=== PATIENT | female | born 2000 | race American Indian/Alaskan Native ===

== ENCOUNTER 2020-11-12 20:40 | Inpatient (IN) | payer OTHER ==
[2020-11-12] MEDS ORDERED: BUTORPHANOL 2 MG/1 ML INJ IV PRN (22:48)
[2020-11-12] MEDS ORDERED: ePHEDrine SULFATE 50 MG/1 ML INJ IV PRN (22:48)
[2020-11-12] MEDS ORDERED: TERBUTALINE 1 MG/1 ML INJ SUB-Q PRN (22:48)
[2020-11-12] MEDS ORDERED: LIDOCAINE (2%) 20 MG/1 ML VIAL 20 ML MDV INFILTRATI ONE (22:48)
[2020-11-12] MEDS ORDERED: MINERAL OIL 30 ML ORAL LIQD PO PRN (22:48)
[2020-11-12] MEDS ORDERED: OXYTOCIN DRIP 30 UNITS/500 ML BAG IV SCH ×2 (23:00)
[2020-11-12] MEDS: LACTATED RINGERS 1,000 ML IV SCH (23:18)
[2020-11-13 00:29] LABS: Hematocrit 36.3 % (30.3-42.9); Hemoglobin 12.3 gm/dl (10.1-14.3); Mean Corpuscular HGB Conc 34 % (30-34); Mean Corpuscular Volume 85 fl (79-97); Platelet Count 167 K/mm3 (140-440); Red Blood Count 4.28 M/mm3 (3.65-5.03); Red Cell Distribution Width 15.5 % (13.2-15.2)
[2020-11-13] MEDS: LACTATED RINGERS 1,000 ML IV SCH ×2 (07:08→14:49)
--- NOTE | 2020-11-13 08:50 | History and Physical Report ---
History of Present Illness Date of examination: 11/13/20 Date of admission: 11/12/20 20:40 Chief complaint: IOL History of present illness: 20y/o @ 39+4 weeks admitted for IOL secondary to LGA and obesity. Patient has received care @ [facility]. course is complicated by LGA with last EFW of 4065gm. Patient is GBS negative Past History Past Medical History: no pertinent history Past Surgical History: no surgical history Social history: single - Obstetrical History Expected Date of Delivery: 11/16/20 Actual Gestation: 39 Week(s) 4 Day(s) : 3 Para: 0 Hx # Term Pregnancies: 0 Number of Pregnancies: 0 Spontaneous Abortions: 2 Induced : 0 Number of Living Children: 0 Medications and Allergies Allergies Allergy/AdvReac Type Severity Reaction Status Date / Time No Known Allergies Allergy Verified 11/12/20 22:54 Active Meds: Active Medications Butorphanol Tartrate (Butorphanol 2 Mg/1 Ml Inj) 2 mg IV Q2H PRN PRN Reason: Pain , Severe (7-10) Ephedrine Sulfate (Ephedrine Sulfate 50 Mg/1 Ml Inj) 10 mg IV Q2M PRN PRN Reason: Hypotension Oxytocin/Sodium Chloride (Pitocin/Ns 30 Unit/500ml) 30 units in 500 mls @ 2 mls/hr IV TITR MOOKIE; Protocol Last Titration: 11/13/20 08:27 Dose: 4 mls/hr, 4 mls/hr Documented by: Lactated Ringer's (Lactated Ringers) 1,000 mls @ 125 mls/hr IV DIRECT MOOKIE Last Admin: 11/13/20 07:08 Dose: 125 mls/hr Documented by: Oxytocin/Sodium Chloride (Pitocin/Ns 30 Unit/500ml) 30 units in 500 mls @ 40 mls/hr IV TITR MOOKIE; Protocol Mineral Oil (Mineral Oil 30 Ml Oral Liqd) 30 ml PO QHS PRN PRN Reason: Constipation Terbutaline Sulfate (Terbutaline 1 Mg/1 Ml Inj) 0.25 mg SUB-Q ONCE PRN PRN Reason: Hyperstimulation/Hypertonicity Review of Systems All systems: negative - Vital Signs Vital signs: Vital Signs Pulse Pulse Ox 95 H 97 11/12/20 21:16 11/12/20 21:16 Temp Pulse Resp BP Pulse Ox 98.1 F 68 16 126/74 99 11/13/20 05:30 11/13/20 08:45 11/12/20 21:19 11/13/20 08:34 11/13/20 08:45 - Physical Exam Breasts: Positive: deferred Cardiovascular: Regular rate Lungs: Positive: Clear to auscultation Abdomen: Positive: normal appearance - Obstetrical Cervical Dilatation: 2 Results Result Diagrams: 11/12/20 Unknown Abnormal lab results 11/12/20 Range/Units Unknown RDW 15.5 H (13.2-15.2) % All other labs normal. Assessment and Plan - Patient Problems (1) LGA (large for gestational age) fetus Current Visit: Yes Status: Acute Plan to address problem: admit for induction
--- NOTE | 2020-11-13 17:16 | Anesthesia Consultation ---
Anesthesia Consult and Med Hx Date of service: 11/13/20 - Airway Anesthetic Teeth Evaluation: Good ROM Head & Neck: Adequate Mental/Hyoid Distance: Adequate Mallampati Class: Class II Intubation Access Assessment: Probably Good - Pulmonary Exam CTA: Yes - Cardiac Exam Cardiac Exam: RRR - Pre-Operative Health Status ASA Pre-Surgery Classification: ASA3 Proposed Anesthetic Plan: Epidural - Pulmonary Hx Asthma: No - Cardiovascular System Hx Hypertension: No - Central Nervous System Hx Seizures: No Hx Psychiatric Problems: No - Endocrine Hx Renal Disease: No Hx Hypothyroidism: No Hx Hyperthyroidism: No - Hematic Hx Anemia: No Hx Sickle Cell Disease: No - Other Systems Hx Alcohol Use: No Hx Obesity: Yes
--- NOTE | 2020-11-13 17:36 | Progress Note ---
Labor Epidural - Labor Epidural Start Time: 17:25 Stop Time: 17:30 Performed by:: VINNY TREVINO Procedure: Patient is requesting epidural for labor pain. H&P, and labs reviewed. Procedure explained, questions answered, consent obtained. Patient in sitting position with blood pressure cuff and pulse ox on and working. Timeout performed immediately before start of procedure. Sterile chlorahexadine 0.5% prep/drape. 3 mL 1% lidocaine skin wheal at L[3]-L[4]. 18-gauge Symbios ATM Venture epidural needle advanced to [id number] with saline at 9 cm. Epidural catheter advanced to 13 cm, negative aspiration for blood and csf, negative test dose 3 ml 1.5% lidocaine with epinephrine. Epidural dexmedetomidine [30] mcg administered. Sterile steri-strips and tegaderm applied, followed by tape reinforcement. Patient tolerated procedure well. SRNA
[2020-11-13] MEDS ORDERED: fentaNYL-BUPIV 2 MCG/ML-0.125% 200 MCG/100 ML BAG EPIDURAL SCH (18:00)
[2020-11-13] MEDS ORDERED: ePHEDrine SULFATE 50 MG/1 ML INJ IV PRN (18:00)
[2020-11-13] MEDS ORDERED: NALOXONE 2 MG/2 ML INJ IV PRN (18:00)
[2020-11-13] MEDS ORDERED: SODIUM CHLORIDE 0.9% 1000 ML 1,000 ML ONE (19:03)
[2020-11-13] MEDS ORDERED: SODIUM CHLORIDE 0.9% 1000 ML 1,000 ML VG SCH (20:00)
[2020-11-13] MEDS ORDERED: BICITRA ORAL LIQD 30ML PO ONE (23:26)
[2020-11-13] MEDS ORDERED: FAMOTIDINE 20 MG/2 ML INJ IV ONE (23:26)
[2020-11-13] MEDS ORDERED: METOCLOPRAMIDE 10 MG/2 ML INJ IV ONE (23:26)
[2020-11-13] MEDS ORDERED: ceFAZolin/STERILE WATER 2 GM/20 ML SYRINGE IV NR (23:45)
--- NOTE | 2020-11-14 00:18 | Procedure Note ---
OB Delivery Note - Delivery Date of Delivery: 11/14/20 Surgeon: VOLODYMYR SHARMA Estimated blood loss: other (508 mL) - Section Preop diagnosis: arrest of dilation Postop diagnosis: same section procedure: section, primary low transverse Disposition: PACU Complications: none - Infant A at 1 minute: 8 at 5 minutes: 9 Infant Gender: Male (Weight 8 pounds 2 ounces)
[2020-11-14] MEDS ORDERED: LANOLIN/ZINC/DIMETHICONE (LANSINOH) 7 GM TP PRN (00:19)
[2020-11-14] MEDS ORDERED: WITCH HAZEL/ GLYCERIN PAD TP PRN (00:19)
[2020-11-14] MEDS ORDERED: NALOXONE 0.4 MG/1 ML INJ IV PRN (00:19)
--- NOTE | 2020-11-14 00:19 | Operative Report ---
Operative Report Operative Report: Date of surgery: November 14, 2020 Preoperative diagnosis: at 39+5 weeks; arrest of dilatation; large for gestational age Postoperative diagnosis: Same as above Procedure: Primary low transverse delivery Surgeon: Theresa Paredes M.D. Anesthesia: Regional Estimated blood loss: 500 mL Urine output: 100 mL IV fluids: 500 mL Findings: Liveborn male with Apgars of 8 and 9 weight 8 pounds 2 ounces Indications: 20-year-old -0-2-0 at 39+5 weeks who was admitted for radha ction of labor secondary to large for gestational age infant. The patient's intrapartum course is complicated by arrest of dilatation at 6 cm. Procedure: The patient was taken to the operating room and given regional anesthesia without complication. She was prepped and draped in a normal sterile fashion. A Pfannenstiel skin incision was made down to layer the fascia which was nicked in the midline extended laterally with the Bovie cautery. The superior aspect of the rectus fascia was grasped with [place] clamps x2 and the rectus muscles off sharply. This was done in inferior fashion as well. The rectus muscle midline and peritoneum entered bluntly. An Jose Manuel retractor was then inserted. A bladder blade was placed. The vesicouterine peritoneum was then entered sharply with Metzenbaum scissors. A bladder flap was created digitally. A low transverse uterine incision was then made and extended digitally. There was clear fluid upon entry into the uterine cavity. The head was delivered through the incision with fundal pressure. The cord was clamped and cut x2 and infant was passed off to pediatrics. The placenta was then manually extracted. The uterus was then exteriorized and cleared of clots and debris. The uterine incision was then closed in a running locked fashion with 0 Vicryl additional imbricating stitch was applied for 2 layer closure. The serosa was then reapproximated with 3-0 Vicryl. The posterior cul-de-sac was then copiously irrigated. The uterus was replaced back into the abdomen and pelvis were the gutters were then irrigated. The Jose Manuel retractor was then removed. The peritoneum was then reapproximated with 3-0 Vicryl incorporating the rectus muscle. The fascia was then closed with 0 Vicryl in a running fashion. The skin was then reapproximated with 3-0 Monocryl on a Alhaji needle subcuticular fashion. Steri-Strips to place across the incision and a Crede procedures performed at the end of the surgery. A pressure dressing was applied to the incision. The surgery productive of a liveborn male with Apgars of 8 and 9 weight 8 pounds 2 ounces. The patient was taken to the recovery room in stable condition. All sponge laps and needle counts correct x2.
[2020-11-14] MEDS ORDERED: oxyCODONE /ACETAMINOPHEN 5-325MG TAB PO PRN (00:20)
[2020-11-14] MEDS ORDERED: ACETAMINOPHEN 325 MG TAB PO PRN (00:20)
[2020-11-14] MEDS ORDERED: MORPHINE 4 MG/1 ML INJ IV PRN (00:20)
[2020-11-14] MEDS ORDERED: MAGNESIUM HYDROXIDE (MOM) ORAL LIQD UDC PO PRN (00:20)
[2020-11-14] MEDS ORDERED: BUPIVACAINE/PF (0.5%) 5 MG/1 ML 30 ML VIAL INFILTRATI ONE (00:27)
[2020-11-14] MEDS ORDERED: dexAMETHasone 20 MG/5 ML VIAL ONE (00:28)
[2020-11-14] MEDS ORDERED: LIDOCAINE 2%/EPINEPHRINE 1:200,000 VIAL (20 ML) INFILTRATI ONE (00:28)
[2020-11-14] MEDS ORDERED: LACTATED RINGERS 1,000 ML ONE (00:28)
[2020-11-14] MEDS ORDERED: OXYTOCIN 10 UNIT/1 ML INJ ONE (00:42)
[2020-11-14] MEDS ORDERED: OXYTOCIN DRIP 30 UNITS/500 ML BAG IV SCH (01:00)
--- NOTE | 2020-11-14 01:36 | Progress Note ---
Regional Anesthesia Block - Regional Anesthesia Block Start Time: : Stop Time: : Performed By:: VINNY TREVINO Procedure: U/S guided bilateral tap block performed for post-operative pain requested by Dr. Grimes. H&P & labs reviewed. Procedure explained, questions answered, consent obtained. Patient in the supine position with ekg, blood pressure cuff and pulse ox on and working in PACU. Timeout performed immediately before start of procedure. Probe placed in the mid-axillary line and the external oblique, internal oblique, and transverse abdominus muscles identified. Skin was cleansed with chlorahexadine 0.5% and allowed to dry. A 4" 20 G Luong echogenic needle was advanced in plane until the tip was in the fascial plane between the internal oblique and the transverse abdominus. After negative aspiration 35 ml/side of [30 ml 0.5% Bupivacaine], [10 mg dexamethasone], and [40 ml sterile saline] was injected in 5 ml increments with negative aspiration in between. Patient tolerated procedure well.
[2020-11-14] MEDS: KETOROLAC 30 MG/1 ML INJ IV PRN ×2 (06:51→12:25)
[2020-11-14] MEDS ORDERED: LACTATED RINGERS 1,000 ML IV SCH (07:00)
[2020-11-14 16:10] LABS: Hematocrit 26.7 % (30.3-42.9)
[2020-11-14] MEDS: IBUPROFEN 600 MG TAB PO PRN (17:34)
--- NOTE | 2020-11-14 18:02 | Post Anesthesia Evaluation ---
- Post Anesthesia Evaluation Patient Participated: Yes Airway Patent: Yes Stable Respiratory Function: Yes Nausea/Vomiting: No Temp > 96.8F: Yes Pain Manageable: Yes Adequeate Hydration: Yes Anesthesia Complications: No Block Receding Appropriately: Yes
--- NOTE | 2020-11-15 08:07 | Progress Note ---
Assessment and Plan - Patient Problems (1) Status post primary low transverse section Current Visit: Yes Status: Acute Plan to address problem: Continue routine PP orders Keep dressing clean and dry, remove on POD 2 Anticipate d/c home in 24-48 hrs if stable (2) Anemia Current Visit: Yes Status: Acute Qualifiers: Anemia type: other cause Other causes of anemia: acute posthemorrhagic Qualified Code(s): D62 - Acute posthemorrhagic anemia Plan to address problem: Asymptomatic Increase iron rich foods into diet Subjective - Subjective Date of service: 11/15/20 Principal diagnosis: S/P primary C/S; POD#1 Interval history: 20y/o @ 39+4 weeks admitted for IOL secondary to LGA and obesity. Patient has received care @ [facility]. course is complicated by LGA with last EFW of 4065gm. Patient is GBS negative Patient reports: appetite normal, voiding normally, pain well controlled (with medication), flatus, ambulating normally, no bowel movement : doing well, bottle feeding (and latched x 1) Objective - Vital Signs Latest vital signs: Vital Signs Temp Pulse Resp BP BP Pulse Ox 11/15/20 07:42 98.2 F 96 H 18 115/58 97 11/15/20 00:00 98.6 F 69 16 114/78 11/14/20 15:51 98.4 F 98 H 18 137/70 Intake and Output 11/14/20 11/15/20 11/15/20 23:59 07:59 15:59 Intake Total 300 300 Output Total 600 Balance -300 300 Intake: Intake, Free Water 300 300 Output: Urine 600 Void 600 Other: Total, Output Amount 600 # Voids Void 1 1 - Exam Breasts: Present: normal Cardiovascular: Present: Regular rate Lungs: Present: Normal air movement Abdomen: Present: soft, tenderness Uterus: Present: firm, fundal height at umbilicus Extremities: Present: edema Deep Tendon Reflex Grade: Normal +2 Incision: Present: dressed (no shadow drainage or bleeding noted) - Labs Labs: Abnormal lab results 11/14/20 Range/Units 16:00 Hgb 9.0 L D (10.1-14.3) gm/dl Hct 26.7 L D (30.3-42.9) %
[2020-11-15] MEDS: FERROUS SULFATE 325 MG TAB PO SCH (10:45)
[2020-11-15] MEDS: IBUPROFEN 600 MG TAB PO PRN ×2 (10:45→17:45)
[2020-11-16] MEDS: IBUPROFEN 600 MG TAB PO PRN ×2 (00:04→09:29)
[2020-11-16] MEDS: FERROUS SULFATE 325 MG TAB PO SCH ×2 (00:05→09:29)
--- NOTE | 2020-11-16 08:07 | Progress Note ---
Assessment and Plan - Patient Problems (1) LGA (large for gestational age) fetus Current Visit: Yes Status: Acute Plan to address problem: patient doing well discharge home Subjective - Subjective Date of service: 11/16/20 Principal diagnosis: S/P primary C/S; POD#1 Interval history: Patient doing well. Tolerating regular diet. Pain controlled Patient reports: appetite normal, voiding normally, pain well controlled [place]: doing well Objective - Vital Signs Latest vital signs: Vital Signs Temp Pulse Resp BP Pulse Ox 11/15/20 16:13 98.4 F 83 18 113/67 100 Intake and Output 11/15/20 11/16/20 11/16/20 22:59 06:59 14:59 Intake Total 300 300 Balance 300 300 Intake: Intake, Free Water 300 300 Other: # Voids Void 1 1
--- NOTE | 2020-11-16 08:08 | Discharge Summary ---
Providers - Providers Date of Admission: 11/12/20 20:40 Date of discharge: 11/16/20 Attending physician: VOLODYMYR SHARMA Primary care physician: VOLODYMYR SHARMA Hospitalization Reason for admission: induction of labor Delivery: Procedure: section, primary low transverse Discharge diagnosis: IUP at term delivered Hospital course: Patient admitted for IOL. Complicated by arrest of dilation. Patient underwent a delivery. Postop uncomplicated Condition at discharge: Good Disposition: DC-01 TO HOME OR SELFCARE - Discharge Diagnoses (1) LGA (large for gestational age) fetus Status: Acute Plan - Discharge Medications Prescriptions: Ibuprofen [Motrin] 800 mg PO Q8HR PRN #60 tablet PRN Reason: Pain , Severe (7-10) oxyCODONE /ACETAMINOPHEN [Percocet 5/325] 1 tab PO Q6HR PRN #30 tablet PRN Reason: Pain - Provider Discharge Summary Activity: no sex for 6 weeks, no heavy lifting 4 weeks, no strenuous exercise Diet: routine Instructions: routine Additional instructions: [] Smoking cessation referral if applicable(refer to patient education folder for contact #) [] Refer to [facility] Booklet Call your doctor immediately for: * Fever > 100.5 * Heavy vaginal bleeding ( >1 pad per hour) * Severe persistent headache * Shortness of breath * Reddened, hot, painful area to leg or breast * Drainage or odor from incision. * Keep incision clean and dry at all times and follow doctor's instructions regarding bathing/showering schedule postop incision check in 2 weeks - Follow up plan
[2020-11-16 16:33] VITALS: BP 131/89
== END 2020-11-16 17:05 | disposition home or self-care (01) | DRG 765 ==
LOC: LD 20:40 → OB 11-14 02:54
PROVIDERS: ADMIT Obstetrics & Gynecology; ATTEND Obstetrics & Gynecology
PROC: 3E0R3BZ Introduction of Anesthetic Agent into Spinal Canal, Percutaneous Approach (ICD-10-PCS; 2020-11-13)
PROC: 00HU33Z Insertion of Infusion Device into Spinal Canal, Percutaneous Approach (ICD-10-PCS; 2020-11-13)
PROC: 10D00Z1 Extraction of Products of Conception, Low, Open Approach (ICD-10-PCS; principal; 2020-11-14)
DX: O62.0 Primary inadequate contractions (principal); D62 Acute posthemorrhagic anemia; Z3A.39 39 weeks gestation of pregnancy; Z37.0 Single live birth; Z20.822 Contact with and (suspected) exposure to COVID-19
CPT/HCPCS: 36415; 85014; 85018; 85027; 86850; 86900; 86901; 99211; G0378; G0463; J0595; J1100; J1885; J2590; J2765; J7120; U0003

== ENCOUNTER 2021-02-26 10:51 | Outpatient (CLI) | payer OTHER ==
--- NOTE | 2021-02-26 14:42 | Magnetic Resonance Report ---
MRI PELVIS WITHOUT AND WITH CONTRAST INDICATION / CLINICAL INFORMATION: ABNORMAL MASS AND IUD CHECK. TECHNIQUE: Multiplanar, multisequence series were obtained through the pelvis before and after the administratio n of 20 mL Clariscan. COMPARISON: None available. FINDINGS: BOWEL: No significant abnormality. PERITONEUM: Trace pelvic free fluid. No free air. No fluid collection. LYMPH NODES: No significant adenopathy. ARTERIES: No significant abnormality. VEINS: No significant abnormality. URINARY BLADDER: No significant abnormality. REPRODUCTIVE ORGANS: The uterus is anteverted and anteflexed, measuring up to 10.0 x 5.5 x 4.8 cm. The endometrium is wit hin normal limits, measuring up to 5 mm in thickness. A prior scar is noted in the lower an terior uterine body. An IUD is in place which appears to be inferiorly displaced in the lower uterine segment and endocervical canal. The top of the IUD is located approximately 4 cm inferior from the f undal endometrium. There is a pelvic mass either arising from or immediately adjacent to the anterior uterine body. The mass measures up to 4.7 x 3.7 x 2.9 cm. The mass demonstrates increased signal on precontrast T1-weig hted imaging, raising the possibility of internal blood products. The ovaries are unremarkable in appearance. There is a 2 cm dominant follicle noted in the left ovary . ADDITIONAL FINDINGS: None. SKELETAL SYSTEM: No significant abnormality. IMPRESSION: 1. There is a pelvic mass either arising from or immediately adjacent to the anterior uterine body. D ifferential consideration includes an exophytic subserosal uterine fibroid with hemorrhagic degenerat ion. Recommend ongoing surveillance with pelvic ultrasound to ensure stability. 2. The IUD appears inferiorly displaced in the lower uterine segment/endocervical canal. Signer Name: Mag Coy MD Signed: 02/26/2021 2:38 PM Workstation Name: [email or web address]
== END 2021-02-26 10:52 | disposition home or self-care (01) ==
LOC: MRI 10:51
PROVIDERS: ATTEND Obstetrics & Gynecology
DX: D25.9 Leiomyoma of uterus, unspecified (principal); R19.09 Other intra-abdominal and pelvic swelling, mass and lump; N94.89 Other specified conditions associated with female genital organs and menstrual cycle; Z30.431 Encounter for routine checking of intrauterine contraceptive device
CPT/HCPCS: 72197; A9575